=== PATIENT | female | born 1965 | race African-American/Black ===

== ENCOUNTER 2018-10-08 13:47 | Emergency (ER) | payer OTHER | END 2018-10-08 15:47 | disposition short-term general hospital (02) | LOC: NAV ERS 13:47 | DX: R60.0 Localized edema (principal); M79.662 Pain in left lower leg; E11.9 Type 2 diabetes mellitus without complications; I10 Essential (primary) hypertension; Z87.891 Personal history of nicotine dependence; Z79.84 Long term (current) use of oral hypoglycemic drugs; Z79.899 Other long term (current) drug therapy | CPT/HCPCS: 36415; 85379; 99284 ==

== ENCOUNTER 2023-04-16 16:39 | Emergency (ER) | payer BC ==
[2023-04-16] MEDS ORDERED: Dextrose 5 % And 0.9 % NaCl 1,000 ML ONE (16:51)
[2023-04-16 17:12] LABS: #Basophils 0.1 thou/uL (0.0-0.2); #Eosinphils 0.1 thou/uL (0.0-0.7); #Lymphocytes 3.5 thou/uL (1.20-3.40); #Monocytes 0.6 thou/uL (0.11-0.59); #Neutrophils 7.4 thou/uL (1.40-6.50); %Basophils 0.9 % (0.0-1.0); %Eosinophils 0.5 % (0.0-10.0); %Lymphocytes 30.3 % (21.0-51.0); %Monocytes 5.1 % (0.0-10.0); %Neutrophils 63.2 % (42.0-75.0); Hemoglobin 10.8 g/dL (12.0-16.0); Mean Corpuscular HGB CONC 30.8 g/dL (32.0-36.0); Mean Corpuscular Volume 94.4 fl (78.0-98.0); Platelet Count 479 10x3/uL (130-400); RBC Distribution Width 13.9 % (11.5-14.5); Red Blood Cell (RBC) Count 3.71 mill/uL (4.20-5.40); White Blood Cell (WBC) Count 11.7 10x3/uL (4.8-10.8)
[2023-04-16 17:26] LABS: ALT (SGPT) 22 U/L (8-55); AST (SGOT) 18 U/L (5-34); Albumin 3.9 g/dL (3.5-5.0); Alkaline Phosphatase 80 U/L (40-110); Anion Gap 14 mmol/L (10-20); BUN (Urea Nitrogen) 16 mg/dL (9.8-20.1); Bilirubin, Total 0.6 mg/dL (0.2-1.2); Calc. Creatinine Clearance 0 mL/min (70-130); Carbon Dioxide 28 mmol/L (22-29); Chloride 100 mmol/L (98-107); Estimated GFR 45; Globulin 3.1 g/dL (2.4-3.5); Glucose 60 mg/dL (70-105); Potassium 4.4 mmol/L (3.5-5.1); Sodium 138 mmol/L (136-145)
[2023-04-16 18:17] LABS: Bilirubin Negative (Negative); Blood, Urine Negative (Negative); Glucose, Urine (Dipstick) Negative (Negative); Ketone, Urine Negative (Negative); Leukocyte Negative (Negative); Nitrite Negative (Negative); Protein, Urine (Dipstick) Trace mg/dL (Neg-Trace); Specific Gravity, Urine 1.025 (1.005-1.030); Urobilinogen 0.2 mg/dL (Less than 2)
[2023-04-16 18:20] LABS: Bacteria/HPF 3+ HPF (None Seen); CAUTI Indications for Culture Dysuria,urgency,freq; Clarity Hazy (Clear); WBC/HPF 0-3 HPF (0-3)
[2023-04-16 18:22] LABS: Urine Culture Reflex No No
[2023-04-16] MEDS ORDERED: Ondansetron PF 4 MG/2 ML Vial IVP PRN (22:30)
[2023-04-16] MEDS ORDERED: Dextrose 5 % And 0.9 % NaCl 1,000 ML IV SCH (22:30)
[2023-04-16] MEDS ORDERED: Ondansetron ODT 4 MG TAB SL PRN (22:30)
[2023-04-16] MEDS ORDERED: Acetaminophen 325 MG TAB PO PRN (22:30)
[2023-04-17] MEDS ORDERED: FLU VACC QS2023(65UP)/MF59C/PF 60 MCG/0.5 ML SYRINGE IM ONE (09:00)
== END 2023-04-16 21:41 | disposition critical access hospital (66) ==
LOC: NAV ERS 16:39
DX: D64.9 Anemia, unspecified (principal); E16.2 Hypoglycemia, unspecified; Z87.891 Personal history of nicotine dependence; E11.9 Type 2 diabetes mellitus without complications; Z79.01 Long term (current) use of anticoagulants; Z79.84 Long term (current) use of oral hypoglycemic drugs
CPT/HCPCS: 36416; 80053; 81001; 85025; 96360; 96361; J7042

== ENCOUNTER 2023-04-16 21:45 | Observation (INO) | payer BC ==
[2023-04-17] MEDS ORDERED: Ondansetron ODT 4 MG TAB SL PRN (00:30)
[2023-04-17] MEDS ORDERED: Ondansetron PF 4 MG/2 ML Vial IVP PRN (00:30)
[2023-04-17] MEDS ORDERED: Acetaminophen 325 MG TAB PO PRN (00:30)
[2023-04-17] MEDS ORDERED: Dextrose 5 % And 0.9 % NaCl 1,000 ML IV SCH (00:30)
[2023-04-17] MEDS ORDERED: Senokot S 8.6-50 MG TAB PO PRN (08:08)
[2023-04-17] MEDS ORDERED: Sodium Chloride 0.65% Nasal 44 ML BOT EA NARE PRN (08:08)
[2023-04-17] MEDS ORDERED: Glucagon 1 MG/ML KIT IM PRN (08:08)
[2023-04-17] MEDS ORDERED: Artificial Tear Sol 15 ML BOT EA EYE PRN (08:08)
[2023-04-17] MEDS ORDERED: cloNIDine 0.1 MG TAB PO PRN (08:08)
[2023-04-17] MEDS ORDERED: Dextrose 50% Abboject 50 ML SYRINGE SLOW IVP PRN (08:08)
[2023-04-17] MEDS ORDERED: Calcium Carbonate 500 MG ChewTAB PO PRN (08:08)
[2023-04-17] MEDS ORDERED: Bisacodyl 10 MG SUPP PR PRN (08:08)
[2023-04-17] MEDS ORDERED: Bisacodyl 5 MG TAB PO PRN (08:08)
[2023-04-17] MEDS ORDERED: Benzonatate 100 MG CAP PO PRN (08:08)
[2023-04-17] MEDS ORDERED: Apixaban 2.5 MG TAB PO SCH ×2 (09:00)
[2023-04-17] MEDS ORDERED: Amlodipine 5 MG TAB PO SCH ×2 (09:00→21:00)
[2023-04-17] MEDS ORDERED: Lisinopril 20 MG TAB PO SCH (09:00)
[2023-04-17] MEDS ORDERED: Hydrochlorothiazide 25 MG TAB PO SCH (09:00)
[2023-04-17] MEDS ORDERED: Atorvastatin Calcium 40 MG TAB PO SCH ×2 (10:00→21:00)
[2023-04-17 11:23] VITALS: BMI 53.8
[2023-04-17 16:28] VITALS: BP 105/51; TEMP 98
[2023-04-18] MEDS ORDERED: Atorvastatin Calcium 40 MG TAB PO SCH (09:00)
== END 2023-04-17 16:50 | disposition home or self-care (01) ==
LOC: NAV ACUTE 21:47
PROVIDERS: ADMIT Family Medicine; ATTEND Family Medicine
DX: E11.65 Type 2 diabetes mellitus with hyperglycemia (principal); I10 Essential (primary) hypertension; E78.5 Hyperlipidemia, unspecified; Z90.710 Acquired absence of both cervix and uterus; Z87.891 Personal history of nicotine dependence; Z79.84 Long term (current) use of oral hypoglycemic drugs; Z79.01 Long term (current) use of anticoagulants; Z79.899 Other long term (current) drug therapy
CPT/HCPCS: 36416; 96374; G0378; J2405; J7042

== ENCOUNTER 2023-10-27 07:51 | Emergency (ER) | payer BC ==
[2023-10-27 08:26] LABS: Bilirubin Negative (Negative); Blood, Urine Negative (Negative); Clarity Slightly Cloudy (Clear); Glucose, Urine (Dipstick) Negative (Negative); Ketone, Urine Negative (Negative); Leukocyte Negative (Negative); Nitrite Negative (Negative); Protein, Urine (Dipstick) Negative (Neg-Trace); Specific Gravity, Urine 1.025 (1.005-1.030); Urobilinogen 0.2 mg/dL (Less than 2); pH, Urine 6.5 (5.0-9.0)
[2023-10-27 08:29] LABS: CAUTI Indications for Culture Dysuria,urgency,freq
[2023-10-27 08:31] LABS: Bacteria/HPF 1+ HPF (None Seen); RBC/HPF None Seen HPF (0-3); Squamous Epithelial 0-3 HPF (0-3); Urine Culture Reflex No No; WBC/HPF None Seen HPF (0-3)
== END 2023-10-27 09:30 | disposition home or self-care (01) ==
LOC: NAV ERS 07:51
DX: R30.0 Dysuria (principal); I10 Essential (primary) hypertension; E11.9 Type 2 diabetes mellitus without complications; Z87.891 Personal history of nicotine dependence; Z79.899 Other long term (current) drug therapy; Z79.85 Long-term (current) use of injectable non-insulin antidiabetic drugs; Z86.718 Personal history of other venous thrombosis and embolism; Z79.01 Long term (current) use of anticoagulants
CPT/HCPCS: 36416; 81001; 93005